=== PATIENT | female | born 1960 | race Caucasian/White ===

== ENCOUNTER 2019-03-24 12:18 | Emergency (ER) | payer MEDICARE, BC ==
[2019-03-24] MEDS ORDERED: MAGNESIUM HYDROXIDE/AL HYDROX 30 ML, LIDOCAINE VISC 2% 15ML 15 ML PO ONE ×2 (13:06)
[2019-03-24] MEDS ORDERED: ACETAMINOPHEN 1,000 MG/100 ML BTL IVPB ONE (13:06)
--- NOTE | 2019-03-24 13:09 | Emergency Department Record ---
History of Present Illness - General Chief Complaint: Chest Pain Stated Complaint: CHEST TIGHTNESS Time Seen by Provider: 03/24/19 12:32 Source: Patient, Family Mode of Arrival: Ambulatory Limitations: No limitations - History of Present Illness Initial Comments: The patient is here due to a 12 hour hx of upper AP. The pain is aching and intermittently radiates up into the chest. It is associated with nausea but no vomiting. The patient denies any hx of similar issues. She does feel intermittently SOB with the pain but denies any chest pain or back pain. She does have a hx of a heart murmur but no coronary artery issues. The patient has a hx of abdominal surgeries of a and Laparotomy. MD Complaint: Other Onset/Timin -: Hour(s) Pain Location: Epigastric Pain Radiation: Abdomen Severity scale (1-10): 8 Quality: Tightness Consistency: Constant Improves With: Antacids Treatment Prior to Arrival Comment:: antacids/prilosec - Related Data Home Medications Medication Instructions Recorded Confirmed Last Taken Cyclobenzaprine HCl 10 mg PO PRN 03/24/19 03/23/19 Estradiol 1 patch TD WEEKLY 03/24/19 03/24/19 03/24/19 Progesterone, Micronized 1 cap PO DAILY 03/24/19 03/24/19 03/23/19 [Progesterone] Previous Rx's Medication Instructions Recorded Naproxen [Naprosyn] 250 mg PO BID #14 tablet 03/24/19 Sucralfate [Carafate] 1 gm PO QID #28 tablet 03/24/19 Allergies Allergy/AdvReac Type Severity Reaction Status Date / Time Iodine and Iodide Containing Allergy HIVES Verified 03/24/14 22:28 Produc penicillin G Allergy HIVES Verified 03/24/14 22:28 Sulfa (Sulfonamide Allergy HIVES Verified 03/24/14 22:28 Antibiotics) niacin AdvReac HIVES Verified 04/15/16 15:11 Travel Screening - Travel/Exposure Within Last 30 Days Have you traveled within the last 30 days?: No - Travel/Exposure Within Last Year Have you traveled outside the [place] in the last year?: No - Additonal Travel Details Have you been exposed to anyone with a communicable illness?: No Review of Systems Constitutional: Denies: Chills, Fever Eyes: Denies: Eye discharge ENT: Denies: Congestion Respiratory: Denies: Cough, Dyspnea Cardiovascular: Denies: Arrhythmia, Chest pain Endocrine: Denies: Fatigue Gastrointestinal: Reports: Abdominal pain, Nausea. Denies: Diarrhea Genitourinary: Denies: Dysuria Musculoskeletal: Denies: Arthralgia Neurological: Denies: Abnormal gait Past Medical History - SOCIAL HISTORY Smoking Status: Never smoker Alcohol Use: None Drug Use: None - RESPIRATORY Hx Respiratory Disorders: Yes Hx Asthma: Yes - CARDIOVASCULAR Hx Cardio Disorders: Yes Hx Palpitations: Yes - NEURO Hx Neuro Disorders: No - GI Hx GI Disorders: No - Hx Genitourinary Disorders: No - ENDOCRINE Hx Endocrine Disorders: Yes Hx Thyroid Disease: Yes Comment:: Graves disease - MUSCULOSKELETAL Hx Musculoskeletal Disorders: Yes Comment:: Frozen shoulder - PSYCH Hx Psych Problems: No - HEMATOLOGY/ONCOLOGY Hx Hematology/Oncology Disorders: No Family Medical History Any Significant Family History?: Yes Hx Cancer: Father, Mother Hx Diabetes: Father, Mother Hx Heart Disease: Father, Mother Hx HTN: Father, Mother Physical Exam - General General Appearance: Alert, Oriented x3, Cooperative, No acute distress - Head Head exam: Atraumatic, Normocephalic, Normal inspection - Eye Eye exam: Normal appearance - ENT Throat exam: Normal inspection. negative: Tonsillar erythema, Tonsillar exudate - Neck Neck exam: Normal inspection, Full ROM. negative: Tenderness - Respiratory Respiratory exam: Normal lung sounds bilaterally. negative: Respiratory distress - Cardiovascular Cardiovascular Exam: Normal rhythm, Systolic murmur (2/6.) - GI/Abdominal GI/Abdominal exam: Soft, Normal bowel sounds, Tenderness (There is significant epigastric tenderness which does reproduce the patient's pain.). negative: Mass, Rebound, Rigid - Extremities Extremities exam: Normal inspection, Full ROM, Normal capillary refill. negative: Calf tenderness, Pedal edema, Tenderness Image of Full Body: 1 - Area of pain and tenderness. - Neurological Neurological exam: Alert. negative: Motor sensory deficit - Psychiatric Psychiatric exam: negative: Anxious Course Vital Signs 03/24/19 03/24/19 12:22 12:48 Temperature 97.7 F 96.8 F L Pulse Rate [ 91 H Left Brachial] Respiratory 16 Rate Blood Pressure 138/91 [Left Arm] - Reevaluation(s) Reevaluation #1: The patient is doing better but still having some pain. We are still waiting on her US report. 03/24/19 15:00 Reevaluation #2: The patient is doing a lot better at this time. The Toradol seems to have helped the pain the most. She denies any CP or SOB and her cardiac enzymes and D-dimer were neg. We are still waiting on the abdominal US report and the patient states the pain is much improved. On exam her abdomen is very soft and with only minimal epigastric tenderness. 03/24/19 16:20 Reevaluation #3: The patient is again doing a lot better. Her epigastric pain is 90% gone at this time. When she is laying flat she has no pain but when she stands up she feels a pulling sensation and very mild pain. There is no CP, SOB, sweating or nausea. I did discuss the neg workup with the patient and due to the nature of the pain with a neg EKG, Trop, D-dimer and liver and pancreas enzymes, I strongly doubt any serious cardiac or pulmonary etiology. The patient did have a normal abdominal US also with no GB disease. We will check a 2nd EKG and Trop and if neg will discharge the patient to home and have her F/U with her PCP later this week. Additionally the patient has a Heart Score of 1 so I do feel she will be stable for discharge for outpatient F/U. 03/24/19 16:28 Reevaluation #4: 2nd EKG: Neg for any acute changes. Normal EKG. 03/24/19 16:38 Reevaluation #5: I did discuss the case with Dr. An who is network security consultant for the patient's PCP and he does agree with the plan for discharge. 03/24/19 17:37 Medical Decision Making - Data Complexity MDM Data: Labs Ordered and/or Reviewed, X-Ray Ordered and/or Reviewed, EKG Ordered and/or Reviewed - Lab Data Result diagrams: 03/24/19 13:00 03/24/19 13:00 - EKG Data -: EKG Interpreted by Me EKG: No Acute Changes, Normal EKG (Neg for ischemic changes.) - Radiology Data Radiology results: Report reviewed (CXR: Neg. Abd US: Neg for any acute problems.) Disposition Disposition: Discharge Clinical Impression: Abdominal pain Qualifiers: Abdominal location: epigastric Qualified Code(s): R10.13 - Epigastric pain Disposition: Home, Self-Care Condition: (2) Stable Instructions: Abdominal Pain (ED) Additional Instructions: Please continue your regular medicines and please take the Carafate and Naprosyn as directed. Please see your regular doctor for recheck later this week. Return to the ER for any worsening pain, fever or vomiting. Prescriptions: Sucralfate [Carafate] 1 gm PO QID #28 tablet Naproxen [Naprosyn] 250 mg PO BID #14 tablet Forms: Patient Portal Access Time of Disposition: 17:18 Quality - Quality Measures Quality Measures: N/A - Blood Pressure Screening View Details: Yes Does Patient Have Any of the Following: No Blood Pressure Classification: Hypertensive Reading Systolic Measurement: 118 Diastolic Measurement: 95 Screening for High Blood Pressure: < First Hypertensive BP, F/U Documented > [G8950] First Hypertensive Follow-up Interventions: Referral to alternative/primary care provider.
[2019-03-24 13:13] LABS: ABSOLUTE NEUTROPHIL COUNT 5.26; BASO % 1.1 % (0-6); GRAN % 67.1 % (47-80); HEMATOCRIT 42.7 % (35.0-47.0); HEMOGLOBIN 13.8 gm/dl (11.6-16.0); LYMPH % 20.6 % (16-45); MEAN CELL VOLUME 89.9 fl (81-97); MEAN CORPUSCULAR HEMOGLOBIN 29.1 pg (27-33); MEAN CORPUSCULAR HGB CONC 32.3 g/dl (32-36); MEAN PLATELET VOLUME 10.8 fl (7.4-10.4); MONO % 9.2 % (0-9); PLATELET COUNT 316 K/uL (130-400); RED BLOOD COUNT 4.75 M/uL (3.80-5.40); RED CELL DISTRIBUTION WIDTH 14.1 % (11.5-14.5); WHITE BLOOD COUNT W/O DIFF 7.9 K/uL (4.2-12.2)
[2019-03-24 13:22] LABS: BLOOD UREA NITROGEN 12 mg/dL (8-23)
[2019-03-24 13:23] LABS: CREATININE 0.7 mg/dL (0.5-0.9); EST GLOMERULAR FILTRATION RATE > 60 mL/min; LIPASE 37 U/L (13-60); TOTAL PROTEIN 7.5 g/dL (6.6-8.7)
[2019-03-24 13:24] LABS: PARTIAL THROMBOPLASTIN TIME 27.1 SECONDS (24.5-39.1)
[2019-03-24 13:25] LABS: GLUCOSE,RANDOM 109 mg/dL (74-109)
[2019-03-24 13:27] LABS: ALT/SGPT 26 U/L (<33)
[2019-03-24 13:28] LABS: ALBUMIN 4.6 g/dL (4.0-5.0); ALKALINE PHOSPHATASE 78 U/L (35-104); AST/SGOT 21 U/L (10.0-35.0); CREATINE PHOSPHOKINASE 125 U/L (26-192)
[2019-03-24 13:30] LABS: CKMB 1.8 ng/mL (<3.77)
[2019-03-24 13:31] LABS: BILIRUBIN,DIRECT < 0.2 mg/dL (0-0.3)
[2019-03-24] MEDS ORDERED: KETOROLAC 30 MG/ML VIAL IVP ONE (14:26)
[2019-03-24] MEDS ORDERED: SUCRALFATE 1 G/10 ML UD PO ONE (15:45)
--- NOTE | 2019-03-24 15:58 | RADIOLOGY REPORT ---
EXAMINATION: Two View Chest Radiographs EXAM DATE: 03/24/2019 3:38 PM TECHNIQUE: Frontal and lateral views INDICATION: epigastric pain. COMPARISON: April 15, 2016 ENCOUNTER: Not applicable FINDINGS: The heart, mediastinum, and pulmonary vasculature are normal. No lung consolidation or pleural effu sions are present. IMPRESSION: Negative for active intrathoracic disease Dictated by: Ade Ibarra MD on 03/24/2019 3:55 PM. .
--- NOTE | 2019-03-24 16:21 | ULTRASOUND REPORT ---
EXAMINATION: Complete Abdomen Ultrasound EXAM DATE: 03/24/2019 4:09 PM TECHNIQUE: Complete ultrasound of the abdomen was performed. INDICATION: Upper AP COMPARISON: None FINDINGS: Liver: The liver is normal size and echogenicity. Gallbladder: Negative for shadowing gallstones. Gallbladder wall measures 11 mm and is not thickened . Common Bile Duct: The common duct measures 5 mm. There is no intrahepatic or extrahepatic bile duct dilatation. Pancreas: The head and body of the pancreas are normal. The tail is obscured by bowel gas. Spleen: The spleen size and echogenicity is normal. Kidneys: There is no hydronephrosis. The size and echogenicity of the kidneys is normal. Abdominal Aorta: There is no abdominal aortic aneurysm. Inferior Vena Cava: The intrahepatic IVC is normal. Other Findings: No ascites. Vascular imaging: Not performed. IMPRESSION: No significant abnormality identified. Dictated by: Ade Ibarra MD on 03/24/2019 4:15 PM. .
== END 2019-03-24 17:37 | disposition home or self-care (01) ==
LOC: ER 12:18
DX: R10.13 Epigastric pain (principal); R07.89 Other chest pain; R11.0 Nausea; R06.02 Shortness of breath
CPT/HCPCS: 99284 ×2; 96365; 96375; 82550; 83690; 85025; 85730; 85610; 80076; 82553; 80048; 84484; 85379; 71046; 76700; 93005; 93010; J1885